=== PATIENT | male | born 1985 | race Caucasian/White ===

== ENCOUNTER → 2021-09-11 | Outpatient (REF) | LOC: M LABSMTC 12:01 | PROVIDERS: ATTEND Pediatrics | DX: Z20.822 Contact with and (suspected) exposure to COVID-19 (principal) ==

== ENCOUNTER 2023-11-20 11:22 | Day surgery (SDC) | payer BC ==
[~2023-11-20] VITALS: Ht 182.9 cm; Wt 81.3 kg
[2023-11-20] MEDS: NS 1,000 ML IV ONE (12:01)
[2023-11-20] MEDS ORDERED: LIDOCAINE 2% 100MG/5ML SDV (FOR ANES.) As Ordered ONE (12:38)
[2023-11-20] MEDS ORDERED: fentaNYL 100 MCG/2 ML INJECTION As Ordered ONE (12:38)
[2023-11-20] MEDS ORDERED: propofoL 200 MG/20 ML VIAL As Ordered ONE (12:38)
[2023-11-20 13:08] VITALS: TEMP 97.7
[2023-11-20 13:30] VITALS: BP 124/71; O2SAT 98
== END 2023-11-20 13:40 | disposition home or self-care (01) ==
LOC: M OPP 11:22
PROVIDERS: ATTEND Internal Medicine Gastroenterology
DX: K64.8 Other hemorrhoids (principal); K64.9 Unspecified hemorrhoids; K52.89 Other specified noninfective gastroenteritis and colitis; B96.81 Helicobacter pylori [H. pylori] as the cause of diseases classified elsewhere; K29.70 Gastritis, unspecified, without bleeding; K21.00 Gastro-esophageal reflux disease with esophagitis, without bleeding; R63.4 Abnormal weight loss; R10.13 Epigastric pain; F17.290 Nicotine dependence, other tobacco product, uncomplicated
CPT/HCPCS: 43239; 45380; 88305; J3010